=== PATIENT | female | born 1980 | race Caucasian/White ===

== ENCOUNTER 2017-03-31 14:24 | Emergency (ER) | payer SELFPAY ==
[~2017-03-31] VITALS: Ht 172.7 cm; Wt 52.5 kg
[~2017-03-31 14:24] MED LIST: IBUP600 PO; OXYC1SOL5 PO; PREN1TAB30; SUBO8MIS SL
[2017-03-31 14:26] VITALS: BP 124/86; PULSE 93; RESP 15; TEMP 97.9; O2SAT 100
[2017-03-31] MEDS ORDERED: SUBO8MIS SL (15:33)
[2017-03-31] MEDS ORDERED: CLON.5 PO (15:33)
--- NOTE | 2017-03-31 16:12 | RADRPT ---
EXAM DATE/TIME: 03/31/2017 15:51 [facility] COMPARISON: No previous studies available for comparison. INDICATIONS : Shortness of breath. MEDICAL HISTORY : None. SURGICAL HISTORY : None. ENCOUNTER: Initial ACUITY: 1 day PAIN SCORE: 0/10 LOCATION: Bilateral chest FINDINGS: A single view of the chest demonstrates the lungs to be symmetrically aerated without evidence of mas s, infiltrate or effusion. The cardiomediastinal contours are unremarkable. Osseous structures are intact. CONCLUSION: No acute disease. Forest Wade MD on March 31, 2017 at 16:09 Board Certified Radiologist. This report was verified electronically.
--- NOTE | 2017-03-31 16:25 | RADRPT ---
EXAM DATE/TIME: 03/31/2017 15:47 [facility] COMPARISON: No previous studies available for comparison. INDICATIONS : Right shoulder pain, fall off jungle gym. MEDICAL HISTORY : None. SURGICAL HISTORY : None. ENCOUNTER: Initial ACUITY: 1 week PAIN SCORE: 10/10 LOCATION: Right posterior shoulder FINDINGS: Abnormal. There is a comminuted fracture of the body of the scapula with posterior displacement and angulation of the inferior fracture fragment stopped the glenohumeral alignment is maintained in both frontal and transscapular Y. view. A.c. joint is intact. The visualized right upper ribs are intac t. There is significant soft tissue swelling about the posterior upper chest. CONCLUSION: Angulated and displaced fracture of the body of the scapula. Mack Castellano MD on March 31, 2017 at 16:21 Board Certified Radiologist. This report was verified electronically.
--- NOTE | 2017-03-31 17:04 | PD ---
HPI Chief Complaint: Injury Time Seen by Provider: 15:26 Travel History International Travel<30 days: No Contact w/Intl Traveler<30days: No Traveled to known affect area: No History of Present Illness HPI This is a 36-year-old female who presents to the emergency department having had a fall a week and a half ago when she is playing with her children on playground equipment and she was up by the slides and she fell down and landed on her right side. She has severe pain, constant, worse with moving her arm and shoulder, improved with rest with no associated numbness or weakness in her right shoulder. She has had intermittent headaches. At the time she is not sure if she lost consciousness. She is also having neck pain and right-sided rib pain which is worse when she takes a deep breath. She thought she come and be evaluated because her pain is not improving despite rest, ice, heat, ibuprofen and Tylenol. PFSH Past Medical History Blood Disorders: No Anxiety: Yes Depression: Yes Cancer: No Cardiovascular Problems: No Chemotherapy: No Diabetes: No Diminished Hearing: No Endocrine: No Genitourinary: No Immune Disorder: No Musculoskeletal: Yes (DDD) Neurologic: No Reproductive: No Respiratory: No Radiation Therapy: No Seizures: Yes (SEIZURES AND DX WITH CYST ON BRAIN IN 2009) Thyroid Disease: No Tetanus Vaccination: < 5 Years ?: Not LMP: 03/30/17 : 1 Para: 1 Past Surgical History Surgical History: No Previous Surgery AICD: No Arteriovenous Shunt: No Insulin Pump: No Joint Replacement: No Pacemaker: No Other Surgery: No Social History Alcohol Use: No Tobacco Use: Yes Substance Use: Yes (METHADONE, FORMER OPIATE ABUSE) Allergies-Medications (Allergen,Severity, Reaction): Coded Allergies: No Known Allergies (Verified Adverse Reaction, Unknown, 03/31/17) Reported Meds & Prescriptions Reported Meds & Active Scripts Active Reported Klonopin (Clonazepam) 0.5 Mg Tab 0.5 Mg PO BID Suboxone Sublingual Film (Buprenorphine-Naloxone Sublingual Film) 8-2 Mg Film 1 Film SL BID Unique ID number required: Review of Systems Except as stated in HPI: all other systems reviewed are Neg Physical Exam Narrative GENERAL:Well appearing, no acute distress SKIN: Focused skin assessment warm and dry. HEAD: Atraumatic. Normocephalic. EYES: Pupils equal and round. No injection or drainage. ENT: Moist mucous membranes NECK: Trachea midline. CARDIOVASCULAR: Regular rate and rhythm. No murmur appreciated. 2+ right radial pulse with normal capillary refill. Focally tender to palpation over the right lower anterior rib cage. RESPIRATORY: Clear to auscultation. Breath sounds equal bilaterally. GASTROINTESTINAL: Abdomen soft, non-tender, nondistended. MUSCULOSKELETAL: Tender to palpation in the upper midline cervical spine, tender to palpation over the right scapula and proximal humerus. Pain with abduction of the right shoulder. NEUROLOGICAL: Awake and alert. No obvious cranial nerve deficits. Moving all extremities. PSYCHIATRIC: Appropriate mood and affect; insight and judgment normal. Data Data Last Documented VS Vital Signs Date Time Temp Pulse Resp B/P (MAP) Pulse Ox O2 Delivery O2 Flow Rate FiO2 03/31/17 14:26 97.9 93 15 124/86 (99) 100 Orders Orders Shoulder, Complete (>2vws) (03/31/17 ) Chest, Single Ap (03/31/17 ) Complete Blood Count With Diff (03/31/17 16:37) Comprehensive Metabolic Panel (03/31/17 16:37) ^ Insert Iv (03/31/17 16:37) Ct Brain W/O Iv Contrast(Rout) (03/31/17 ) Ct Cerv Spine W/O Contrast (03/31/17 ) Ct Thorax/ Chest W Iv Contrast (03/31/17 ) Ed Urine Pregnancytest Poc (03/31/17 16:37) Labs Laboratory Tests Test 03/31/17 16:54 [facility] Medical Decision Making Medical Screen Exam Complete: Yes Emergency Medical Condition: Yes Interpretation(s) Afebrile, no tachycardia, normotensive Last 24 hours Impressions Shoulder X-Ray 03/31/17 0000 Signed Impressions: Service Date/Time: Friday, March 31, 2017 15:47 - CONCLUSION: Angulated and displaced fracture of the body of the scapula. Mack Castellano MD Chest X-Ray 03/31/17 0000 Signed Impressions: Service Date/Time: Friday, March 31, 2017 15:51 - CONCLUSION: No acute disease. Forest Wade MD Differential Diagnosis Proximal humerus fracture, clavicular fracture, shoulder sprain, shoulder dislocation Narrative Course This is a 36-year-old female who reports that a week and a half ago she fell from a significant height in the playground landing on her right side. She is having headache, neck pain and rib pain as well as shoulder pain. X-ray of the shoulder demonstrates fracture through the body of the scapula. Given the significant force required to create this injury I have ordered CT of the head, cervical spine and chest. Scans will be followed up by Dr. Velasquez. Darby Adhikari MD Mar 31, 2017 17:04
[2017-03-31 17:27] LABS: AUTOMATED NEUTROPHIL # 6.1 TH/MM3 (1.8-7.7); BASOPHIL # 0.1 TH/MM3 (0-0.2); BASOPHIL % 0.6 % (0.0-2.0); EOSINOPHIL # 0.1 TH/MM3 (0-0.4); HEMATOCRIT 36.8 % (35.0-46.0); HEMOGLOBIN 12.7 GM/DL (11.6-15.3); LYMPH % 19.1 % (9.0-44.0); LYMPHOCYTE # 1.6 TH/MM3 (1.0-4.8); MEAN CELL VOLUME 87.9 FL (80.0-100.0); MEAN CORPUSCULAR HEMOGLOBIN 30.2 PG (27.0-34.0); MEAN CORPUSCULAR HGB CONC 34.4 % (32.0-36.0); MEAN PLATELET VOLUME 8.1 FL (7.0-11.0); MONOCYTE # 0.4 TH/MM3 (0-0.9); NEUT % 74.3 % (16.0-70.0); PLATELET COUNT 322 TH/MM3 (150-450); RED BLOOD COUNT 4.19 MIL/MM3 (4.00-5.30); RED CELL DISTRIBUTION WIDTH 14.8 % (11.6-17.2); WHITE BLOOD COUNT 8.3 TH/MM3 (4.0-11.0)
[2017-03-31 17:29] LABS: ALBUMIN 3.1 GM/DL (3.4-5.0); AST (GOT) 15 U/L (15-37); BICARBONATE 29.5 MEQ/L (21.0-32.0); BLOOD UREA NITROGEN 12 MG/DL (7-18); CALCIUM 8.4 MG/DL (8.5-10.1); CHLORIDE 102 MEQ/L (98-107); CREATININE 0.63 MG/DL (0.50-1.00); GLOMERULAR FILTRATION RATE 108 ML/MIN (>89); GLUCOSE,RANDOM 113 MG/DL (74-106); SODIUM (NA) 138 MEQ/L (136-145)
[2017-03-31 17:30] LABS: ALT (GPT) 17 U/L (10-53)
[2017-03-31 17:33] LABS: ALKALINE PHOSPHATASE 86 U/L (45-117); TOTAL BILIRUBIN ADULT 0.2 MG/DL (0.2-1.0)
[2017-03-31] MEDS ORDERED: IOHEXOL 350 MG/ML 10 ML VIAL (for RAD DIAG) IVCONTRAST ONE (17:58)
--- NOTE | 2017-03-31 18:14 | RADRPT ---
EXAM DATE/TIME: 03/31/2017 17:48 [facility] COMPARISON: CT BRAIN W/O CONTRAST, February 06, 2012, 9:22. INDICATIONS : Trauma; fall one week ago. RADIATION DOSE: 56.35 CTDIvol (mGy) MEDICAL HISTORY : Seizures. opiate abuse SURGICAL HISTORY : None. ENCOUNTER: Initial ACUITY: 1 week PAIN SCALE: 5/10 LOCATION: cranial TECHNIQUE: Multiple contiguous axial images were obtained of the head. Using automated exposure control and adj ustment of the mA and/or kV according to patient size, radiation dose was kept as low as reasonably a chievable to obtain optimal diagnostic quality images. DICOM format image data is available electro nically for review and comparison. FINDINGS: The patient is canted in the gantry creating some asymmetries. CEREBRUM: The ventricles are normal for age. No evidence of midline shift, mass lesion, hemorrhage or acute in farction. No extra-axial fluid collections are seen. POSTERIOR FOSSA: The cerebellum and brainstem are intact. The 4th ventricle is midline. The cerebellopontine angle i s unremarkable. EXTRACRANIAL: Air-fluid levels in both maxillary sinuses. SKULL: The calvaria is intact. No evidence of skull fracture. CONCLUSION: 1. No acute findings in the brain. 2. Bilateral maxillary sinus air-fluid levels. Mack Castellano MD on March 31, 2017 at 18:10 Board Certified Radiologist. This report was verified electronically.
--- NOTE | 2017-03-31 18:17 | RADRPT ---
EXAM DATE/TIME: 03/31/2017 17:48 [facility] COMPARISON: No previous studies available for comparison. INDICATIONS : Trauma; patient fell one week ago. RADIATION DOSE: 26.51 CTDIvol (mGy) MEDICAL HISTORY : Seizures. opiate abuse SURGICAL HISTORY : None. ENCOUNTER: Initial ACUITY: 1 month PAIN SCALE: 5/10 LOCATION: neck TECHNIQUE: Volumetric scanning of the cervical spine was performed. Multiplanar reconstructions in the sagittal, coronal and oblique axial planes were performed. Using automated exposure control and adjustment o f the mA and/or kV according to patient size, radiation dose was kept as low as reasonably achievable to obtain optimal diagnostic quality images. DICOM format image data is available electronically f or review and comparison. FINDINGS: VERTEBRAE: Normal vertebral body height. ALIGNMENT: Normal alignment of vertebral bodies in cervical spine lateral projection. Minimal curvature towards the left. C2-C3: No fracture seen. The neural foramina are patent. C3-C4: No fracture seen. The neural foramina are patent. C4-C5: No fracture seen. The neural foramina are patent. C5-C6: No fracture seen. The neural foramina are patent. C6-C7: No fracture seen. The neural foramina are patent. C7-T1: No fracture seen. The neural foramina are patent. CONCLUSION: No evidence of compression deformity or spondylolisthesis. Mack Castellano MD on March 31, 2017 at 18:13 Board Certified Radiologist. This report was verified electronically.
--- NOTE | 2017-03-31 18:27 | RADRPT ---
EXAM DATE/TIME: 03/31/2017 17:58 [facility] COMPARISON: No previous studies available for comparison. INDICATIONS : Trauma; patient fell one week ago. IV CONTRAST: 75 cc Omnipaque 350 (iohexol) IV RADIATION DOSE: 5.1 CTDIvol (mGy) MEDICAL HISTORY : Seizures. obiate abuse SURGICAL HISTORY : None. ENCOUNTER: Initial ACUITY: 1 week PAIN SCALE: 5/10 LOCATION: chest TECHNIQUE: Volumetric scanning of the chest was performed. Using automated exposure control and adjustment of t he mA and/or kV according to patient size, radiation dose was kept as low as reasonably achievable to obtain optimal diagnostic quality images. DICOM format image data is available electronically for review and comparison. Follow-up recommendations for detected pulmonary nodules are based at a minimum on nodule size and pa tient risk factors according to Fleischner Society Guidelines. FINDINGS: Scan is performed of the patient's right arm in the [id number]. The patient's left arm is positio enrique high above the causes a probable kinking of the subclavian vein with prominent collaterals about the left upper chest. Contrast is present within the superior vena cava and appears partially to be derived via the right subclavian and collaterals.. LUNGS: There is no consolidation or pneumothorax. No concerning pulmonary nodule is visualized. PLEURA: There is no pleural thickening or pleural effusion. MEDIASTINUM: The heart and great vessels demonstrate no acute abnormality. There is no mediastinal or hilar lymph adenopathy. AXILLAE: Within normal limits. No lymphadenopathy. SKELETAL: No fracture seen. CONCLUSION: 1. The lungs are clear. No fracture seen. 2. Multiple small collateral vessels about the left shoulder with partial delivery of contrast into t he superior vena cava via the right side. No definite evidence of superior vena cava obstruction. T he asymmetry is probably due the patient's right arm being down and the left arm being up during the scan. Mack Castellano MD on March 31, 2017 at 18:17 Board Certified Radiologist. This report was verified electronically.
[2017-03-31] MEDS ORDERED: TRAM50 PO (18:58)
--- NOTE | 2017-03-31 19:01 | PD ---
Physical Exam Narrative GENERAL: SKIN: Warm and dry. HEAD: Atraumatic. Normocephalic. EYES: Pupils equal and round. No scleral icterus. No injection or drainage. ENT: No nasal bleeding or discharge. Mucous membranes pink and moist. NECK: Trachea midline. No JVD. CARDIOVASCULAR: Regular rate and rhythm. RESPIRATORY: No accessory muscle use. Clear to auscultation. Breath sounds equal bilaterally. GASTROINTESTINAL: Abdomen soft, non-tender, nondistended. MUSCULOSKELETAL: Extremities without clubbing, cyanosis, or edema. No obvious deformities. ttp over rt post mid scapula NEUROLOGICAL: Awake and alert. No obvious cranial nerve deficits. Motor grossly within normal limits. Five out of 5 muscle strength in the arms and legs. Normal speech. PSYCHIATRIC: Appropriate mood and affect; insight and judgment normal. Data Data Last Documented VS Vital Signs Date Time Temp Pulse Resp B/P (MAP) Pulse Ox O2 Delivery O2 Flow Rate FiO2 03/31/17 14:26 97.9 93 15 124/86 (99) 100 Orders Orders Shoulder, Complete (>2vws) (03/31/17 ) Chest, Single Ap (03/31/17 ) Complete Blood Count With Diff (03/31/17 16:37) Comprehensive Metabolic Panel (03/31/17 16:37) ^ Insert Iv (03/31/17 16:37) Ct Brain W/O Iv Contrast(Rout) (03/31/17 ) Ct Cerv Spine W/O Contrast (03/31/17 ) Ct Thorax/ Chest W Iv Contrast (03/31/17 ) Ed Urine Pregnancytest Poc (03/31/17 16:37) Iohexol 350 Inj (Omnipaque 350 Inj) (03/31/17 17:58) Labs Laboratory Tests Test 03/31/17 16:54 White Blood Count 8.3 TH/MM3 Red Blood Count 4.19 MIL/MM3 Hemoglobin 12.7 GM/DL Hematocrit 36.8 % Mean Corpuscular Volume 87.9 FL Mean Corpuscular Hemoglobin 30.2 PG Mean Corpuscular Hemoglobin Concent 34.4 % Red Cell Distribution Width 14.8 % Platelet Count 322 TH/MM3 Mean Platelet Volume 8.1 FL Neutrophils (%) (Auto) 74.3 % Lymphocytes (%) (Auto) 19.1 % Monocytes (%) (Auto) 5.0 % Eosinophils (%) (Auto) 1.0 % Basophils (%) (Auto) 0.6 % Neutrophils # (Auto) 6.1 TH/MM3 Lymphocytes # (Auto) 1.6 TH/MM3 Monocytes # (Auto) 0.4 TH/MM3 Eosinophils # (Auto) 0.1 TH/MM3 Basophils # (Auto) 0.1 TH/MM3 CBC Comment DIFF FINAL Differential Comment Blood Urea Nitrogen 12 MG/DL Creatinine 0.63 MG/DL Random Glucose 113 MG/DL Total Protein 7.0 GM/DL Albumin 3.1 GM/DL Calcium Level 8.4 MG/DL Alkaline Phosphatase 86 U/L Aspartate Amino Transf (AST/SGOT) 15 U/L Alanine Aminotransferase (ALT/SGPT) 17 U/L Total Bilirubin 0.2 MG/DL Sodium Level 138 MEQ/L Potassium Level 4.3 MEQ/L Chloride Level 102 MEQ/L Carbon Dioxide Level 29.5 MEQ/L Anion Gap 7 MEQ/L Estimat Glomerular Filtration Rate 108 ML/MIN MDM Medical Record Reviewed: Yes Supervised Visit with JULIANN: No Narrative Course ct head neg for ich, ct cspine neg for fx/dislocation, chest ct neg for sternal/ rib fx and neg for lung contusion, or pericardial effusioin at this point Diagnosis Primary Impression: isolated right scapular fracture Referrals: Jacqueline Freeman MD Patient Instructions: General Instructions, Scapular Fracture (ED) Scripts Tramadol (Ultram) 50 Mg Tab 50 MG PO Q8H Y for PAIN for 3 Days, #9 TAB 0 Refills Prov: Guille Velasquez MD 03/31/17 Disposition: 01 DISCHARGE HOME Condition: Stable Guille Velasquez MD Mar 31, 2017 19:01
== END 2017-03-31 19:28 | disposition home or self-care (01) ==
LOC: NEPD 14:24
DX: S42.101A Fracture of unspecified part of scapula, right shoulder, initial encounter for closed fracture (principal); M54.2 Cervicalgia; Z72.0 Tobacco use; R51 Headache; R07.81 Pleurodynia; W09.0XXA Fall on or from playground slide, initial encounter; Y92.838 Other recreation area as the place of occurrence of the external cause
CPT/HCPCS: 70450; 71045; 71260; 72125; 73030; 80053; 84703; 85025; 99285; Q9967